=== PATIENT | male | born 1990 | race African-American/Black ===

== ENCOUNTER 2017-12-16 04:33 | Emergency (ER) | payer SELFPAY ==
[2017-12-16 05:01] LABS: #Eosinphils 0.1 thou/uL (0.0-0.7); #Monocytes 0.5 thou/uL (0.11-0.59); #Neutrophils 3.3 thou/uL (1.40-6.50); %Basophils 0.7 % (0.0-1.0); %Eosinophils 1.4 % (0.0-10.0); %Lymphocytes 42.9 % (21.0-51.0); %Monocytes 7.6 % (0.0-10.0); %Neutrophils 47.5 % (42.0-75.0); Hemoglobin 17.5 g/dL (14.0-18.0); Mean Corpuscular HGB CONC 33.9 g/dL (32.0-36.0); Mean Corpuscular Volume 94.6 fl (80.0-94.0); Mean Platelet Volume 6.9 fL (7.4-10.4); Platelet Count 351 thou/uL (130-400); RBC Distribution Width 12.3 % (11.5-14.5); Red Blood Cell (RBC) Count 5.47 mill/uL (4.70-6.10); White Blood Cell (WBC) Count 6.9 thou/uL (4.8-10.8)
[2017-12-16 05:23] LABS: Anion Gap 14 mmol/L (10-20); BUN (Urea Nitrogen) 8 mg/dL (8.9-20.6); Calc. Creatinine Clearance 0 mL/min (70-130); Carbon Dioxide 25 mmol/L (22-29); Chloride 103 mmol/L (98-107); Estimated GFR-MDRD 76; Glucose 110 mg/dL (70-105); Potassium 4.9 mmol/L (3.5-5.1); Sodium 137 mmol/L (136-145)
[2017-12-16 05:42] LABS: Bilirubin Negative (Negative); Blood, Urine Negative (Negative); Clarity CLEAR (Clear); Glucose, Urine (Dipstick) Negative (Negative); Leukocyte Negative (Negative); Nitrite Positive (Negative); Protein, Urine (Dipstick) Negative (Neg-Trace); Specific Gravity, Urine 1.009 (1.002-1.036); Urobilinogen 0.2 mg/dL (0.2-1.0)
[2017-12-16] MEDS ORDERED: Ondansetron HCl/PF 4 MG/2 ML Vial ONE (05:42)
[2017-12-16] MEDS ORDERED: Ketorolac Tromethamine 30 MG/ML VIAL ONE (05:42)
[2017-12-16] MEDS ORDERED: Morphine 5 MG/ML SYRINGE ONE ×2 (05:42→08:17)
[2017-12-16 05:45] LABS: Bacteria/HPF None Seen HPF (None Seen); Hyaline Casts/LPF 0-3 HYALINE CAST LPF (0-3 Hyaline); Pathc Cast-AUWi Flag 0.14 (0-2.49); RBC/HPF None Seen HPF (0-3); Squamous Epithelial None Seen HPF (0-3); WBC/HPF None Seen HPF (0-3)
[2017-12-16] MEDS ORDERED: cefTRIAXone\\ROCEPHIN 250 MG VIAL ONE (06:56)
[2017-12-16] MEDS ORDERED: Lidocaine 1% PF 5 ML VIAL ONE (06:56)
[2017-12-16] MEDS ORDERED: Azithromycin 250 MG TAB ONE (06:56)
--- NOTE | 2017-12-16 09:34 | ULT ---
TESTICULAR ULTRASOUND: DATE: 12/16/17. HISTORY: Left-sided testicular pain. FINDINGS: The testicles demonstrate a normal sonographic appearance bilaterally and have a homogeneous echotext ure. No testicular mass is seen. The right testicle measures 4.3 cm x 2 cm x 3.1 cm with the left t esticle measuring 3.5 cm x 2.2 cm x 3.4 cm. Doppler evaluation of each testicle with spectral analysis and color flow evaluation does demonstrate arterial flow in each testicle. There is a large anechoic cystic structure seen involving the right epididymis in the region of epidi dymal head which measures 2.5 cm x 1.7 cm and has characteristics most consistent with a large epidid ymal cyst versus a spermatocele. There are a few anechoic cystic structures in the left epididymal h ead, the largest measuring approximately 1.1 cm also demonstrating characteristics most compatible wi th an epididymal cyst. There is no asymmetric increased flow within either testicle or epididymis. A tiny amount of fluid i s seen adjacent to each testicle which is probably physiologic in origin. IMPRESSION: 1. Epididymal cysts bilaterally, the largest on the right measures approximately 2.5 cm. 2. Normal-appearing bilateral testicles with arterial flow documented in each testicle. 3. Above findings discussed with Dr. Zuñiga in the emergency department on 12/16/17 at 0809 hours. POS: ROGE
--- NOTE | 2017-12-16 10:23 | CT ---
PRELIMINARY REPORT/[facility]/EMERGENTY AFTER-HOURS PROCEDURE CT Abdomen and Pelvis Without Intravenous Contrast CLINICAL HISTORY: 27 years old, male; Pain; Abdominal pain; Flank; Lower; Patient HX: History provided by patient, 27 y r old male with no pmh who presents for dysuria, pelvic pain, and urinary frequency/urgency for 1 wk. States pain is stinging when urinating. Feels like urine is being blocked. Pain slightly worse on le ft groin. Reports scant blood in urine yesterday. He has been taking azo and cranberry pills. Reports testicular tenderness. No penile discharge. No fevers. No n/v. No HX of sti. TECHNIQUE: Axial computed tomography images of the abdomen and pelvis without intravenous contrast. Coronal refo rmatted images were created and reviewed. COMPARISON: No relevant prior studies available. FINDINGS: The lung bases are clear. Right kidney: No intrarenal calculus, hydronephrosis or visible mass. No hydroureter or visible ureteral calculus. Left kidney: No intrarenal calculus, hydronephrosis or visible mass. No hydroureter or visible ureteral calculus. No definite gallbladder abnormality by CT. No biliary tree dilation. Unremarkable appearance of the liver, spleen, adrenal glands, and pancreas. No free air, ascites, or bowel distention. No retroperitoneal adenopathy. CT pelvis: Urinary bladder appears essentially unremarkable by CT. The proximal appendix appears unremarkable. The distal appendix is mildly prominent in size with diam eter of about 7 mm. However, there are no surrounding inflammatory changes to strongly suggest append icitis at this time. If appendicitis is in the differential diagnosis, follow-up scanning may be useful, as clinical ly directed. Appropriate clinical follow up warranted. Some higher attenuation material in the append ix probably represents residual contrast from a prior exam, other ingested material, or less likely a n appendicolith. There are no CT findings to strongly suggest diverticulitis. No abnormal mass or flu id collection in the pelvis. IMPRESSION: No renal or ureteral calculus. No hydronephrosis or hydroureter. Unremarkable urinary bladder by CT. No free air or bowel distention. Slight prominence of the distal appendix, without other suspicious findings. Please see detailed disc ussion above. Other findings discussed above. Thank you for allowing us to participate in the care of your patient. Dictated and Authenticated by: King Ocasio MD 12/16/2017 7:01 AM Central Time ([place] & [place]) FINAL REPORT CT ABDOMEN AND PELVIS WITHOUT CONTRAST: Date: 12/16/17 FINDINGS/IMPRESSION: I agree with the preliminary report given by Ron. POS: ROGE
[2017-12-18 03:55] LABS: Chlamydia by PCR Not Detected (NotDetected); GC by PCR Not Detected (NotDetected)
== END 2017-12-16 08:35 | disposition home or self-care (01) ==
LOC: ERS 04:33
DX: N45.1 Epididymitis (principal); F17.210 Nicotine dependence, cigarettes, uncomplicated
CPT/HCPCS: 74176; 76870; 80048; 81003; 81015; 83690; 85025; 87086; 87491; 87591; 93976; 96361; 96372; 96374; 96375; 96376; J2270; J0696; J1885; J2001; J2405

== ENCOUNTER 2018-04-05 19:10 | Emergency (ER) | payer SELFPAY ==
[2018-04-05] MEDS ORDERED: Ketorolac Tromethamine 30 MG/ML VIAL ONE (19:55)
--- NOTE | 2018-04-05 20:32 | RAD ---
CHEST ONE VIEW: 04/05/18 HISTORY: Pain. COMPARISON: None. FINDINGS: Normal cardiac silhouette. The pulmonary vessels and hilum are normal. Costophrenic angles are clear. No consolidation, or mass. No pneumothorax or osseous abnormalities. IMPRESSION: No acute cardiopulmonary process. POS: H
[2018-04-05] MEDS ORDERED: Lorazepam 2 MG/ML VIAL ONE (20:42)
[2018-04-05 21:28] LABS: Bilirubin Negative (Negative); Blood, Urine Negative (Negative); Clarity CLEAR (Clear); Glucose, Urine (Dipstick) Negative (Negative); Leukocyte Negative (Negative); Nitrite Negative (Negative); Protein, Urine (Dipstick) 30 mg/dL (Neg-Trace); Specific Gravity, Urine 1.023 (1.002-1.036)
[2018-04-05 21:31] LABS: Bacteria/HPF None Seen HPF (None Seen); Pathc Cast-AUWi Flag 1.01 (0-2.49)
[2018-04-05 21:36] LABS: Crystals/HPF None Seen HPF (Negative); Hyaline Casts/LPF 0-3 HYALINE CAST LPF (0-3 Hyaline); RBC/HPF 0-3 HPF (0-3); Yeast-All Forms None Seen HPF (None Seen)
[2018-04-05 21:37] LABS: Amphetamine Detected (NotDetected); Cocaine Metabolite Screen Detected (NotDetected); Medtox Reader # READER 1; Methamphetamine Detected (NotDetected); THC/Cannabinoid Screen Detected (NotDetected)
[2018-04-05 21:38] LABS: Barbiturates Screen Not Detected (NotDetected); Benzodiazepine Screen Not Detected (NotDetected); Medtox Control Line Valid? VALID (VALID); Methadone Not Detected (NotDetected); Opiate Screen Not Detected (NotDetected); Oxycodone Screen Not Detected (NotDetected); Phencyclidine (PCP) Not Detected (NotDetected); Tricyclic Screen Not Detected (NotDetected)
--- NOTE | 2018-04-09 11:57 | EKG ---
Test Reason : CHEST PAIN Blood Pressure : / mmHG Vent. Rate : 094 BPM Atrial Rate : 094 BPM P-R Int : 000 ms QRS Dur : 074 ms QT Int : 336 ms P-R-T Axes : 000 088 058 degrees QTc Int : 420 ms Normal sinus rhythm Normal ECG Confirmed by LAKESHIA NICOLAS ([id number]), editor trade journal LUCY SANTORO ([id number]) on 04/09/2018 11:56:50 AM Referred By: Confirmed By:LAKESHIA NICOLAS
== END 2018-04-05 22:27 | disposition home or self-care (01) ==
LOC: ERS 19:10
DX: R07.89 Other chest pain (principal); F17.210 Nicotine dependence, cigarettes, uncomplicated
CPT/HCPCS: 71045; 80306; 81003; 81015; 87491; 87591; 93005; 96361; 96374; 96375; J1885; J2060